=== PATIENT | male | born 1940 | race Caucasian/White ===

== ENCOUNTER → 2023-02-17 | Outpatient (CLI) | payer MEDICARE, BC ==
[2023-02-17 14:18] LABS: African American GFR (CKD) 64 (>60 ml/min/1.73 sqM); Blood Urea Nitrogen 25 mg/dL (9-20); Non-African American GFR(CKD) 56 (>60 ml/min/1.73 sqM)
--- NOTE | 2023-02-17 16:12 | CT ---
EXAMINATION TYPE: CT urogram wo/w con CT DLP: 2011 mGycm, Automated exposure control for dose reduction was used. DATE OF EXAM: 02/17/2023 3:57 PM COMPARISON: None CLINICAL INDICATION:Male, 83 years old with history of C67.9; PHH, hematuria, bladder ca TECHNIQUE: Urogram of the abdomen and pelvis was performed before and after the administration of 100 cc of IV c ontrast Isovue 300 contrast. Delayed imaging was performed. Coronal and sagittal reformats were perfo rmed. One or more CT dose reduction strategies were utilized during this examination. 2D and 3D recon structions are performed to assist visualization of the urinary tract on a separate workstation. FINDINGS: GENITOURINARY: RIGHT KIDNEY AND URETER: No calculi. No hydronephrosis or hydroureter. Couple of subcentimeter hypode nse nonenhancing lesions within renal cortex consistent with cysts. No solid enhancing lesion identif ied. No urothelial lesions: no filling defect, dilation, stricture or wall thickening. LEFT KIDNEY AND URETER: No calculi. No hydronephrosis or hydroureter. Couple of subcentimeter hypoden se nonenhancing lesions within renal cortex consistent with cysts. No solid enhancing lesion identif ied. No urothelial lesions: no filling defect, dilation, stricture or wall thickening. URINARY BLADDER: Not optimally distended. Normal, no calculi, mass or other lesions within these limi tations. REPRODUCTIVE: Prostatomegaly measuring 5.2 cm in transverse dimension. ABDOMEN LIVER: Unremarkable. GALLBLADDER AND BILE DUCTS: Unremarkable PANCREAS: Unremarkable. SPLEEN: Unremarkable. ADRENAL GLANDS: Unremarkable. STOMACH AND BOWEL: Small hiatal hernia. Colonic diverticulosis without evidence for acute diverticuli tis.. No evidence of bowel obstruction. PERITONEUM: No evidence of pneumoperitoneum, free fluid, or adenopathy. VASCULATURE: Atherosclerotic calcifications are present throughout the abdominal aorta and its branch es. No abdominal aortic aneurysm. Few pelvic phleboliths. MUSCULOSKELETAL: No acute osseous abnormalities. Degenerative changes of the pubic symphysis. No aggr essive osseous lesion. Mild multilevel degenerative disc disease of the visualized thoracolumbar spin e. SOFT TISSUE/ABDOMINAL WALL: Tiny fat filled umbilical hernia. Small fat filled left inguinal hernia. LOWER CHEST: Visualized lung bases are clear. Coronary calcifications. Mitral annulus dense calcifica tions. Midline sternal wires IMPRESSION: 1. No evidence of urolithiasis or suspicious renal/urothelial neoplasm. The urinary bladder is not op timally distended however there is no definitive wall thickening or polypoid lesions identified. If p rior imaging could be made available, comparison will be made. 2. No evidence for metastatic disease within the visualized abdomen and pelvis. 3. Colonic diverticulosis without evidence for acute diverticulitis.
== END | disposition home or self-care (01) ==
LOC: RADCTMAIN 13:38
PROVIDERS: ATTEND Urology
DX: C67.9 Malignant neoplasm of bladder, unspecified (principal); K57.30 Diverticulosis of large intestine without perforation or abscess without bleeding; R31.9 Hematuria, unspecified
CPT/HCPCS: 82565; 84520; 74178; 36415; 74400; Q9967